=== PATIENT | male | born 1950 | race Caucasian/White ===

== ENCOUNTER 2018-02-15 12:14 | Day surgery (SDC) | payer OTHER ==
[~2018-02-15] VITALS: Ht 172.7 cm; Wt 92.8 kg
[~2018-02-15 12:14] MED LIST: ALBU90OI61; CHOL10002; Desyrel50 MG; FURO20; LEVSOD100; LISI5; METO50; PANT20; TAMS.4ER; XARELTO20 MG
== END 2018-02-15 14:25 | disposition home or self-care (01) ==
LOC: ORSCSDS 12:14
PROVIDERS: Internal Medicine Gastroenterology
PROC: 0DBM8ZX Excision of Descending Colon, Via Natural or Artificial Opening Endoscopic, Diagnostic (ICD-10-PCS; principal; 2018-02-15 13:45)
PROC: 0DB68ZX Excision of Stomach, Via Natural or Artificial Opening Endoscopic, Diagnostic (ICD-10-PCS; principal; 2018-02-15 13:45)
DX: R19.5 Other fecal abnormalities (principal); K29.50 Unspecified chronic gastritis without bleeding; D12.4 Benign neoplasm of descending colon; K64.8 Other hemorrhoids; K57.30 Diverticulosis of large intestine without perforation or abscess without bleeding; D64.9 Anemia, unspecified; I48.2 Chronic atrial fibrillation; G47.33 Obstructive sleep apnea (adult) (pediatric); J45.909 Unspecified asthma, uncomplicated; Z87.891 Personal history of nicotine dependence; I10 Essential (primary) hypertension; E78.5 Hyperlipidemia, unspecified; E03.9 Hypothyroidism, unspecified; Z79.01 Long term (current) use of anticoagulants; Z79.899 Other long term (current) drug therapy
CPT/HCPCS: 88305; 88342; J7120

== ENCOUNTER 2021-05-25 08:42 | Emergency (ER) | payer OTHER ==
[~2021-05-25] VITALS: Ht 172.7 cm; Wt 99.8 kg
[2021-05-25 09:41] LABS: BASOPHILS ABSOLUTE AUTO 0.04 K/mm3 (0.00-0.23); BASOPHILS PERCENT AUTO 1 % (0-2); EOSINOPHILS ABSOLUTE AUTO 0.02 K/mm3 (0.00-0.68); EOSINOPHILS PERCENT AUTO 0 % (0-6); Hematocrit 31.8 % (37.0-53.0); Hemoglobin 10.8 g/dL (13.5-17.5); IMMATURE GRAN ABSOLUTE AUTO 0.05 K/mm3 (0.00-0.10); IMMATURE GRAN PERCENT AUTO 1 % (0-1); LYMPHOCYTES ABSOLUTE AUTO 1.64 K/mm3 (0.84-5.20); LYMPHOCYTES PERCENT AUTO 20 % (21-46); MONOCYTES ABSOLUTE AUTO 1.28 K/mm3 (0.16-1.47); MONOCYTES PERCENT AUTO 15 % (4-13); Mean Corpuscular Volume 94 fL (80-100); Mean Platelet Volume 11.3 fL (9.1-12.4); NEUTROPHILS ABSOLUTE AUTO 5.33 K/mm3 (1.96-9.15); NEUTROPHILS PERCENT AUTO 64 % (41-73); Platelet Count 212 K/mm3 (150-400); RDW Coefficient Variation 15.9 % (11.7-14.2); RDW Standard Deviation 53.9 fL (35.1-46.3); Red Blood Cell Count 3.38 M/mm3 (4.30-5.90); White Blood Cell Count 8.36 K/mm3 (4.00-11.30)
[2021-05-25 09:58] LABS: Alanine Aminotransfer (ALT/SGP 45 U/L (12-78); Albumin, Blood 2.6 g/dL (3.4-5.0); Albumin/Globulin Ratio 0.7 (0.8-1.8); Alk Phos 198 U/L (50-136); Anion Gap 5 mmol/L (6-16); Aspartate Aminotrans (AST/SGOT 72 U/L (12-37); Bilirubin, Total 1.1 mg/dL (0.1-1.0); Blood Urea Nitrogen 14 mg/dL (8-24); Bun/Creatinine Ratio 12.4 (12.0-20.0); CO2, Blood 29 mmol/L (21-32); Calcium, Blood 8.4 mg/dL (8.5-10.1); Chloride, Blood 99 mmol/L (98-108); Creatinine, Blood 1.13 mg/dL (0.60-1.20); Globulin, Blood 3.8 g/dL (2.2-4.0); Glomerular Filtration Rate >60 (60-); Glucose, Blood 117 mg/dL (70-99); Potassium, Blood 4.7 mmol/L (3.5-5.5); Sodium, Blood 133 mmol/L (136-145); Total Protein, Blood 6.4 g/dL (6.4-8.2); Troponin I <0.015 ng/mL (0.000-0.040)
[2021-05-25] MEDS ORDERED: ERGO400 PO (12:13)
[2021-05-25] MEDS ORDERED: Toprol Xl25 MG PO (12:53)
[2021-05-25] MEDS ORDERED: Pepcid20 MG PO (12:53)
== END 2021-05-25 20:46 | disposition home or self-care (01) ==
LOC: ER 08:42
PROVIDERS: Emergency Medicine
DX: I48.91 Unspecified atrial fibrillation (principal); E03.9 Hypothyroidism, unspecified; I10 Essential (primary) hypertension; G47.30 Sleep apnea, unspecified; Z79.01 Long term (current) use of anticoagulants; Z87.891 Personal history of nicotine dependence; Z88.8 Allergy status to other drugs, medicaments and biological substances; Z79.52 Long term (current) use of systemic steroids
CPT/HCPCS: 71045; 80053; 84484; 85025; 93005; 93010; 96374; 99285-25; A9270

== ENCOUNTER 2021-05-25 18:31 | Emergency (ER) | payer OTHER ==
[~2021-05-25] VITALS: Ht 172.7 cm; Wt 99.8 kg
[~2021-05-25 18:31] MED LIST changes: +ERGO400 PO; +Pepcid20 MG PO; +Toprol Xl25 MG PO
[2021-05-25 20:04] LABS: BASOPHILS ABSOLUTE AUTO 0.05 K/mm3 (0.00-0.23); BASOPHILS PERCENT AUTO 1 % (0-2); EOSINOPHILS ABSOLUTE AUTO 0.03 K/mm3 (0.00-0.68); EOSINOPHILS PERCENT AUTO 0 % (0-6); Hematocrit 31.7 % (37.0-53.0); Hemoglobin 10.8 g/dL (13.5-17.5); IMMATURE GRAN ABSOLUTE AUTO 0.05 K/mm3 (0.00-0.10); IMMATURE GRAN PERCENT AUTO 1 % (0-1); LYMPHOCYTES ABSOLUTE AUTO 1.95 K/mm3 (0.84-5.20); LYMPHOCYTES PERCENT AUTO 22 % (21-46); MONOCYTES ABSOLUTE AUTO 1.39 K/mm3 (0.16-1.47); MONOCYTES PERCENT AUTO 15 % (4-13); Mean Corpuscular HGB 31.6 pg (26.0-34.0); Mean Corpuscular HGB Conc 34.1 g/dL (31.5-36.5); Mean Corpuscular Volume 93 fL (80-100); Mean Platelet Volume 11.2 fL (9.1-12.4); NEUTROPHILS ABSOLUTE AUTO 5.58 K/mm3 (1.96-9.15); NEUTROPHILS PERCENT AUTO 62 % (41-73); Platelet Count 203 K/mm3 (150-400); RDW Coefficient Variation 15.9 % (11.7-14.2); RDW Standard Deviation 53.5 fL (35.1-46.3); Red Blood Cell Count 3.42 M/mm3 (4.30-5.90); White Blood Cell Count 9.05 K/mm3 (4.00-11.30)
[2021-05-25 20:21] LABS: Alanine Aminotransfer (ALT/SGP 43 U/L (12-78); Albumin, Blood 2.5 g/dL (3.4-5.0); Albumin/Globulin Ratio 0.7 (0.8-1.8); Alk Phos 190 U/L (50-136); Anion Gap 9 mmol/L (6-16); Aspartate Aminotrans (AST/SGOT 62 U/L (12-37); Bilirubin, Total 0.7 mg/dL (0.1-1.0); Blood Urea Nitrogen 18 mg/dL (8-24); Bun/Creatinine Ratio 12.4 (12.0-20.0); CO2, Blood 23 mmol/L (21-32); Calcium, Blood 8.2 mg/dL (8.5-10.1); Chloride, Blood 102 mmol/L (98-108); Creatinine, Blood 1.45 mg/dL (0.60-1.20); Globulin, Blood 3.8 g/dL (2.2-4.0); Glomerular Filtration Rate 48 (60-); Glucose, Blood 163 mg/dL (70-99); Magnesium, Blood 1.3 mg/dL (1.6-2.4); Potassium, Blood 4.4 mmol/L (3.5-5.5); Sodium, Blood 134 mmol/L (136-145); Total Protein, Blood 6.3 g/dL (6.4-8.2); Troponin I <0.015 ng/mL (0.000-0.040)
== END 2021-05-25 21:38 | disposition home or self-care (01) ==
LOC: ER 18:31
PROVIDERS: Student in an Organized Health Care Education/Training Program
DX: I48.91 Unspecified atrial fibrillation (principal); K21.9 Gastro-esophageal reflux disease without esophagitis; E03.9 Hypothyroidism, unspecified; I10 Essential (primary) hypertension; Z87.891 Personal history of nicotine dependence; Z79.890 Hormone replacement therapy; Z79.899 Other long term (current) drug therapy; Z88.8 Allergy status to other drugs, medicaments and biological substances
CPT/HCPCS: 80053; 83735; 84484; 85025; 93005; 93010; 99285-25; J7120

== ENCOUNTER 2021-11-08 22:39 | Inpatient (IN) | payer OTHER ==
[~2021-11-08] VITALS: Ht 172.7 cm; Wt 104.6 kg
[2021-11-08 23:02] LABS: BASOPHILS ABSOLUTE AUTO 0.07 K/mm3 (0.00-0.23); BASOPHILS PERCENT AUTO 1 % (0-2); EOSINOPHILS ABSOLUTE AUTO 0.05 K/mm3 (0.00-0.68); EOSINOPHILS PERCENT AUTO 1 % (0-6); Hemoglobin 10.9 g/dL (13.5-17.5); IMMATURE GRAN ABSOLUTE AUTO 0.05 K/mm3 (0.00-0.10); IMMATURE GRAN PERCENT AUTO 1 % (0-1); LYMPHOCYTES ABSOLUTE AUTO 1.49 K/mm3 (0.84-5.20); LYMPHOCYTES PERCENT AUTO 14 % (21-46); MONOCYTES PERCENT AUTO 12 % (4-13); Mean Corpuscular HGB 32.5 pg (26.0-34.0); Mean Corpuscular HGB Conc 34.1 g/dL (31.5-36.5); Mean Corpuscular Volume 96 fL (80-100); Mean Platelet Volume 10.4 fL (9.1-12.4); NEUTROPHILS ABSOLUTE AUTO 7.61 K/mm3 (1.96-9.15); NEUTROPHILS PERCENT AUTO 72 % (41-73); Platelet Count 253 K/mm3 (150-400); RDW Coefficient Variation 13.6 % (11.7-14.2); RDW Standard Deviation 47.9 fL (35.1-46.3); Red Blood Cell Count 3.35 M/mm3 (4.30-5.90); White Blood Cell Count 10.57 K/mm3 (4.00-11.30)
[2021-11-08 23:23] LABS: Alanine Aminotransfer (ALT/SGP 30 U/L (12-78); Albumin, Blood 3.3 g/dL (3.4-5.0); Albumin/Globulin Ratio 0.8 (0.8-1.8); Alk Phos 146 U/L (50-136); Anion Gap 7 mmol/L (6-16); Aspartate Aminotrans (AST/SGOT 40 U/L (12-37); Bilirubin, Total 0.7 mg/dL (0.1-1.0); Blood Urea Nitrogen 30 mg/dL (8-24); Bun/Creatinine Ratio 18.9 (12.0-20.0); CO2, Blood 24 mmol/L (21-32); Calcium, Blood 8.5 mg/dL (8.5-10.1); Chloride, Blood 101 mmol/L (98-108); Creatinine, Blood 1.59 mg/dL (0.60-1.20); Globulin, Blood 4.2 g/dL (2.2-4.0); Glomerular Filtration Rate 43 (60-); Glucose, Blood 131 mg/dL (70-99); Potassium, Blood 5.9 mmol/L (3.5-5.5); Sodium, Blood 132 mmol/L (136-145); Total Protein, Blood 7.5 g/dL (6.4-8.2); Troponin I <0.015 ng/mL (0.000-0.040)
[2021-11-09 00:31] LABS: Influenza A, PCR NEGATIVE (NEGATIVE); Influenza B, PCR NEGATIVE (NEGATIVE); Resp Syncytial Virus, PCR NEGATIVE (NEGATIVE); SARS-Cov-2 (COVID-19) PCR, MMC NEGATIVE (NEGATIVE)
[2021-11-09] MEDS ORDERED: POTCHL20ER PO (00:47)
[2021-11-09] MEDS ORDERED: ATOR20 PO (00:48)
[2021-11-09] MEDS ORDERED: ELIQUIS5 M2 PO (00:50)
[2021-11-09 01:43] LABS: Magnesium, Blood 1.5 mg/dL (1.6-2.4)
[2021-11-09 05:14] LABS: BASOPHILS ABSOLUTE AUTO 0.05 K/mm3 (0.00-0.23); BASOPHILS PERCENT AUTO 0 % (0-2); EOSINOPHILS PERCENT AUTO 0 % (0-6); Hematocrit 34.8 % (37.0-53.0); Hemoglobin 11.2 g/dL (13.5-17.5); IMMATURE GRAN ABSOLUTE AUTO 0.04 K/mm3 (0.00-0.10); IMMATURE GRAN PERCENT AUTO 0 % (0-1); LYMPHOCYTES PERCENT AUTO 7 % (21-46); MONOCYTES ABSOLUTE AUTO 1.07 K/mm3 (0.16-1.47); MONOCYTES PERCENT AUTO 10 % (4-13); Mean Corpuscular HGB 32.7 pg (26.0-34.0); Mean Corpuscular HGB Conc 32.2 g/dL (31.5-36.5); Mean Platelet Volume 10.4 fL (9.1-12.4); NEUTROPHILS ABSOLUTE AUTO 9.27 K/mm3 (1.96-9.15); NEUTROPHILS PERCENT AUTO 83 % (41-73); Platelet Count 226 K/mm3 (150-400); RDW Coefficient Variation 13.8 % (11.7-14.2); RDW Standard Deviation 50.9 fL (35.1-46.3); Red Blood Cell Count 3.42 M/mm3 (4.30-5.90); White Blood Cell Count 11.23 K/mm3 (4.00-11.30)
[2021-11-09 05:16] LABS: Mean Corpuscular Volume 102 fL (80-100)
--- NOTE | 2021-11-09 05:33 | NUR ---
SHIFT SUMMARY ASSUMED CARE OF PT AT 0245. PT ALERT AND ORIENTED X4. ON 2L NC MAINTIANING SATS OVER 97%. ON CPAP WHILE ASLEEP. HR AFIB 80'S AND 90'S. NO C/O PAIN OR DISCOMFORT. PT VOIDING INDEPENDENTLY. DESATS INTO LOW 90'S AND SOB WITH EXERTION. PT IN BED SLEEPING WITH CALL ALARM AT SIDE. WILL CONTINUE TO MONITOR UNTIL REPORT GIVEN TO DAYSHIFT RN.
[2021-11-09 05:45] LABS: Anion Gap 10 mmol/L (6-16); Blood Urea Nitrogen 30 mg/dL (8-24); Bun/Creatinine Ratio 19.4 (12.0-20.0); CO2, Blood 22 mmol/L (21-32); Calcium, Blood 9.1 mg/dL (8.5-10.1); Chloride, Blood 100 mmol/L (98-108); Creatinine, Blood 1.55 mg/dL (0.60-1.20); Glomerular Filtration Rate 44 (60-); Glucose, Blood 162 mg/dL (70-99); Potassium, Blood 4.8 mmol/L (3.5-5.5); Sodium, Blood 132 mmol/L (136-145); Troponin I <0.015 ng/mL (0.000-0.040)
--- NOTE | 2021-11-09 17:30 | NUR ---
SHIFT SUMMARY PT HAS BEEN RESTING IN BED. PT HAS DENIED C/O PAIN. PT HAS REPOSITIONED SELF FREQUENTLY FOR COMFORT. PT'S HEARING AID BATTERIES THIS AM, SPOUSE BROUGHT IN A RESIDENTIAL PROGRAM MANAGER FOR THE DEVICES. PT HAD AN OCCAISONAL COUGH WITH SCANT PRODUCTION. VSS, NO CHANGES TO CURRENT CONDITION.
[2021-11-10 04:16] LABS: Hematocrit 32.1 % (37.0-53.0); Hemoglobin 10.7 g/dL (13.5-17.5); Mean Corpuscular HGB 32.5 pg (26.0-34.0); Mean Corpuscular HGB Conc 33.3 g/dL (31.5-36.5); Mean Corpuscular Volume 98 fL (80-100); Mean Platelet Volume 10.6 fL (9.1-12.4); Platelet Count 226 K/mm3 (150-400); RDW Coefficient Variation 13.9 % (11.7-14.2); RDW Standard Deviation 48.9 fL (35.1-46.3); Red Blood Cell Count 3.29 M/mm3 (4.30-5.90); White Blood Cell Count 8.68 K/mm3 (4.00-11.30)
[2021-11-10 04:50] LABS: Albumin, Blood 3.2 g/dL (3.4-5.0); Anion Gap 9 mmol/L (6-16); Blood Urea Nitrogen 31 mg/dL (8-24); Bun/Creatinine Ratio 21.2 (12.0-20.0); CO2, Blood 28 mmol/L (21-32); Calcium, Blood 9.1 mg/dL (8.5-10.1); Chloride, Blood 99 mmol/L (98-108); Creatinine, Blood 1.46 mg/dL (0.60-1.20); Glomerular Filtration Rate 48 (60-); Glucose, Blood 117 mg/dL (70-99); Phosphorus, Blood 3.2 mg/dL (2.5-4.9); Potassium, Blood 4.3 mmol/L (3.5-5.5); Sodium, Blood 136 mmol/L (136-145)
--- NOTE | 2021-11-10 05:49 | NUR ---
SHIFT SUMMARY ASSUMED CARE OF PT AT 1900. PT IS A/OX4. HEART SOUNDS REGULAR, LUNG SOUNDS VERY DIMINISHED BUT PT HAS AUDIBLE WHEEZES WHEN OFF CPAP. RT ORDERED BREATHING TREATMENTS FOR PT . PT GETS VERY DYSPNIC WITH ACTIVITY, LIKE PULLING HIMSELF UP IN BED BUT DOES NOT DESATURATE. PT WEARS 2L NC WHEN NOT ON CPAP. PT USED URINAL T/O THE NIGHT. PT SLEPT MOST OF THE NIGHT. CALL LIGHT IN REACH, BED IN LOWEST POSITION.
--- NOTE | 2021-11-10 17:56 | NUR ---
SHIFT SUMMARY PT HAS BEEN RESTING IN BED. PT DECLINED TO GET UP TO BEDSIDE CHAIR FOR MEALS. PT HAS DENIED C/O PAIN OR DISCOMFORT AND REPOSITIONS SELF FREQUENTLY IN BED. PT HAS HAD EPISODES OF INCREASED WORK OF BREATHING, SPO2 HAS REMAINED >95%, THOUGH RESPIRATIONS WERE LABORED. PT WAS PLACED ON BIPAP AT APPROXIMATELY 1745 TO REDUCE WORK OF BREATHING. PT TOLERATED WELL. VSS, NO OTHER CHANGES TO CURRENT CONDITION.
--- NOTE | 2021-11-11 06:19 | NUR ---
SHIFT SUMMARY ASSUMED CARE OF PT AT 1900. PT IS A/OX4. HEART SOUNDS IRREGULAR, TELE SHOWS AFIB. LUNG SOUNDS ARE DIMINISHED AT THE BASES. PT WORE BIPAP T/O THE NIGHT. PT STATES THAT HE FEELS WORSE TODAY BECUASE HE MISSED A BREATHING TEREATMENT. PT WAS GIVEN TYLENOL DUE TO NOT BEING ABLE TO GET COMFORTABLE AND WAS ABLE TO GET A COUPLE HOURS OF SOLID SLEEP. CALL LIGHT IN REACH, BED IN LOWEST POSITION.
[2021-11-11 08:53] LABS: Mean Corpuscular HGB 32.6 pg (26.0-34.0); Mean Corpuscular HGB Conc 33.3 g/dL (31.5-36.5); Mean Corpuscular Volume 98 fL (80-100); Mean Platelet Volume 10.2 fL (9.1-12.4); Platelet Count 209 K/mm3 (150-400); RDW Coefficient Variation 14.1 % (11.7-14.2); RDW Standard Deviation 50.4 fL (35.1-46.3); Red Blood Cell Count 3.37 M/mm3 (4.30-5.90); White Blood Cell Count 10.56 K/mm3 (4.00-11.30)
[2021-11-11 09:31] LABS: Anion Gap 7 mmol/L (6-16); Blood Urea Nitrogen 33 mg/dL (8-24); Bun/Creatinine Ratio 22.1 (12.0-20.0); CO2, Blood 28 mmol/L (21-32); Calcium, Blood 9.4 mg/dL (8.5-10.1); Chloride, Blood 100 mmol/L (98-108); Creatinine, Blood 1.49 mg/dL (0.60-1.20); Glomerular Filtration Rate 47 (60-); Glucose, Blood 116 mg/dL (70-99); Phosphorus, Blood 4.1 mg/dL (2.5-4.9); Potassium, Blood 4.4 mmol/L (3.5-5.5); Sodium, Blood 135 mmol/L (136-145)
--- NOTE | 2021-11-11 17:39 | NUR ---
SHIFT SUMMARY ASSUMED CARE AT 0700, A/A/OX4. UP TO COMMODE DURING SHIFT WITH ASSISTANCE. 3L 02 VIA KS. VSS, MEDS PER EMAR. L/S DIM T/O. REPOSITIONS SELF IN BED NEEDED, NO ACUTE MEDICAL CHANGES DURING SHIFT. WILL CONTINUE TO MONITOR AND TREAT UNTIL CHANGE OF SHIFT.
[2021-11-12 06:44] LABS: Anion Gap 10 mmol/L (6-16); Blood Urea Nitrogen 34 mg/dL (8-24); Bun/Creatinine Ratio 21.5 (12.0-20.0); CO2, Blood 29 mmol/L (21-32); Calcium, Blood 9.2 mg/dL (8.5-10.1); Chloride, Blood 96 mmol/L (98-108); Creatinine, Blood 1.58 mg/dL (0.60-1.20); Glomerular Filtration Rate 43 (60-); Glucose, Blood 106 mg/dL (70-99); Phosphorus, Blood 5.1 mg/dL (2.5-4.9); Potassium, Blood 4.4 mmol/L (3.5-5.5); Sodium, Blood 135 mmol/L (136-145)
--- NOTE | 2021-11-12 06:57 | NUR ---
SUMMARY NO NEW ISSUES NOTED. PT [id number] TO SURG FLOOR W/OUT INCIDENT. PT HAS SLEPT T/OT REMAINDER OF SHIFT W/ OUT DISTRESS. PT CURRENTLY AWAKE AND IN GOOD SPIRITS. CALL JULIA IN REACH.
--- NOTE | 2021-11-12 17:46 | NUR ---
SHIFT SUMMARY PT A&OX4, VSS/BIOX ON, OXYGEN LEVELS > 92% ON RA. DEEP BREATHING/FLUTTER/I.S. EDU/ENC/DEMONSTRATED T/O SHIFT. WORKED WITH PHYSICAL THERAPY AND OT, WALKED HALLWAYS/TO BRP, UP TO CHAIR IN AFTERNOON; MARGOTH LUQUE. GRACIE PO. VOIDING WELL. WILL REPORT TO ONCOMING HA RN.
--- NOTE | 2021-11-13 03:43 | NUR ---
SHIFT SUMMARY A/OX4. VSS. NO REPORTS OF PAIN THIS SHIFT. SBA TO BATHROOM. TELE REPORTS AFIB IN THE 90S. PLAN FOR PT TO GO HOME TODAY. WILL CONTINUE TO MONITOR AND REPORT TO ONCOMING RN.
[2021-11-13 04:09] LABS: Hematocrit 31.1 % (37.0-53.0); Hemoglobin 10.3 g/dL (13.5-17.5); Mean Corpuscular HGB 32.3 pg (26.0-34.0); Mean Corpuscular HGB Conc 33.1 g/dL (31.5-36.5); Mean Corpuscular Volume 98 fL (80-100); Mean Platelet Volume 10.6 fL (9.1-12.4); Platelet Count 214 K/mm3 (150-400); RDW Standard Deviation 49.6 fL (35.1-46.3); Red Blood Cell Count 3.19 M/mm3 (4.30-5.90)
[2021-11-13 04:34] LABS: Albumin, Blood 2.7 g/dL (3.4-5.0); Anion Gap 9 mmol/L (6-16); Blood Urea Nitrogen 45 mg/dL (8-24); Bun/Creatinine Ratio 23.3 (12.0-20.0); CO2, Blood 27 mmol/L (21-32); Calcium, Blood 8.9 mg/dL (8.5-10.1); Chloride, Blood 97 mmol/L (98-108); Creatinine, Blood 1.93 mg/dL (0.60-1.20); Glomerular Filtration Rate 35 (60-); Glucose, Blood 107 mg/dL (70-99); Phosphorus, Blood 4.6 mg/dL (2.5-4.9); Potassium, Blood 4.3 mmol/L (3.5-5.5); Sodium, Blood 133 mmol/L (136-145)
[2021-11-13] MEDS ORDERED: EUTHYROX125 MCG PO (10:25)
[2021-11-13] MEDS ORDERED: TAMS.4ER PO (10:27)
[2021-11-13] MEDS ORDERED: METO25ER PO (10:27)
[2021-11-13] MEDS ORDERED: [UNRECOGNIZED DRUG - CODE] PO (10:28)
[2021-11-13] MEDS ORDERED: PROBIOTIC1 EA13 PO (10:29)
[2021-11-13] MEDS ORDERED: CEFU500T30 PO (10:30)
--- NOTE | 2021-11-13 11:41 | NUR ---
DISCHARGE SUMMARY PT A&OX4, VSS, VOIDING WELL, GRACIE PO, AMBULATING INDEPENDENTLY IN ROOM/TO BRP/HALLWAY. DC INSTRUCTIONS PROVIDED. PT REP UNDERSTANDING THOSE INSTRUCTIONS INCLUDING CARDIAC DIET, NEW MEDS AT [facility], [facility]. LEFT FLOOR VIA WC TO GO HOME WITH , WITH ALL PERSONAL POSSESSIONS.
== END 2021-11-13 11:10 | disposition home or self-care (01) | DRG 871 ==
LOC: ER 22:39 → PCU 11-09 02:44 → SURS 11-11 20:52
PROVIDERS: Internal Medicine; Student in an Organized Health Care Education/Training Program; ADMIT Family Medicine
PROC: 5A09357 Assistance with Respiratory Ventilation, Less than 24 Consecutive Hours, Continuous Positive Airway Pressure (ICD-10-PCS; principal; 2021-11-09)
DX: A41.9 Sepsis, unspecified organism (principal); J18.9 Pneumonia, unspecified organism; I50.31 Acute diastolic (congestive) heart failure; J96.01 Acute respiratory failure with hypoxia; I50.33 Acute on chronic diastolic (congestive) heart failure; N17.9 Acute kidney failure, unspecified; E87.1 Hypo-osmolality and hyponatremia; I13.0 Hypertensive heart and chronic kidney disease with heart failure and stage 1 through stage 4 chronic kidney disease, or unspecified chronic kidney disease; I48.20 Chronic atrial fibrillation, unspecified; R65.20 Severe sepsis without septic shock; Z20.822 Contact with and (suspected) exposure to COVID-19; F43.10 Post-traumatic stress disorder, unspecified; E03.9 Hypothyroidism, unspecified; N18.30 Chronic kidney disease, stage 3 unspecified; K21.9 Gastro-esophageal reflux disease without esophagitis; E87.5 Hyperkalemia; E83.42 Hypomagnesemia; D63.1 Anemia in chronic kidney disease; E78.5 Hyperlipidemia, unspecified; N40.0 Benign prostatic hyperplasia without lower urinary tract symptoms; G47.33 Obstructive sleep apnea (adult) (pediatric); G24.01 Drug induced subacute dyskinesia; E66.9 Obesity, unspecified; Z68.35 Body mass index [BMI] 35.0-35.9, adult; Z88.8 Allergy status to other drugs, medicaments and biological substances; Z90.49 Acquired absence of other specified parts of digestive tract; Z98.890 Other specified postprocedural states; Z87.891 Personal history of nicotine dependence; Z99.89 Dependence on other enabling machines and devices; Z79.01 Long term (current) use of anticoagulants; Z79.899 Other long term (current) drug therapy
CPT/HCPCS: 0241U; 36415; 71045; 80048; 80053; 80069; 83605; 83735; 83880; 84145; 84443; 84484; 85025; 85027; 87040; 93005; 93010; 94640; 94644; 94660; 94762; 96365; 96375; 97110; 97161; 97165; 97530; 97535; 99285-25; A9270; J0456; J0610; J0696; J1940; J3475; J7050

== ENCOUNTER 2022-12-19 20:00 | Inpatient (IN) | payer OTHER ==
[~2022-12-19] VITALS: Ht 172.7 cm; Wt 110.4 kg
[~2022-12-19 20:00] MED LIST changes: +ATOR20 PO; +CEFU500T30 PO; -Desyrel50 MG; +ELIQUIS5 M2 PO; +EUTHYROX125 MCG PO; +METO25ER PO; +POTCHL20ER PO; +PROBIOTIC1 EA13 PO; +TAMS.4ER PO; +TRAZ150T57 PO; +[UNRECOGNIZED DRUG - CODE] PO
[2022-12-19 20:16] LABS: BASOPHILS ABSOLUTE AUTO 0.02 K/mm3 (0.00-0.23); BASOPHILS PERCENT AUTO 0 % (0-2); EOSINOPHILS ABSOLUTE AUTO 0.12 K/mm3 (0.00-0.68); EOSINOPHILS PERCENT AUTO 2 % (0-6); Hematocrit 34.5 % (37.0-53.0); IMMATURE GRAN ABSOLUTE AUTO 0.05 K/mm3 (0.00-0.10); IMMATURE GRAN PERCENT AUTO 1 % (0-1); LYMPHOCYTES ABSOLUTE AUTO 0.98 K/mm3 (0.84-5.20); LYMPHOCYTES PERCENT AUTO 17 % (21-46); MONOCYTES ABSOLUTE AUTO 1.03 K/mm3 (0.16-1.47); MONOCYTES PERCENT AUTO 17 % (4-13); Mean Corpuscular HGB 32.8 pg (26.0-34.0); Mean Corpuscular HGB Conc 34.8 g/dL (31.5-36.5); Mean Corpuscular Volume 94 fL (80-100); Mean Platelet Volume 9.7 fL (9.1-12.4); NEUTROPHILS ABSOLUTE AUTO 3.73 K/mm3 (1.96-9.15); NEUTROPHILS PERCENT AUTO 63 % (41-73); Platelet Count 211 K/mm3 (150-400); RDW Coefficient Variation 12.1 % (11.7-14.2); RDW Standard Deviation 42.4 fL (35.1-46.3); Red Blood Cell Count 3.66 M/mm3 (4.30-5.90); White Blood Cell Count 5.93 K/mm3 (4.00-11.30)
[2022-12-19 20:36] LABS: Albumin, Blood 3.3 g/dL (3.4-5.0); Albumin/Globulin Ratio 0.8 (0.8-1.8); Bilirubin, Total 0.4 mg/dL (0.1-1.0); Bun/Creatinine Ratio 27.5 (12.0-20.0); Calcium, Blood 8.2 mg/dL (8.5-10.1); Creatinine, Blood 1.09 mg/dL (0.60-1.20); Potassium, Blood 4.2 mmol/L (3.5-5.5); Total Protein, Blood 7.3 g/dL (6.4-8.2)
[2022-12-19 20:54] LABS: Influenza A, PCR NEGATIVE (NEGATIVE); Influenza B, PCR NEGATIVE (NEGATIVE); Resp Syncytial Virus, PCR NEGATIVE (NEGATIVE)
[2022-12-19 21:21] LABS: SARS-Cov-2 (COVID-19) PCR, MMC POSITIVE (NEGATIVE)
[2022-12-19 21:44] LABS: PCO2 Venous 48.1 mmHg (38-42); pH Blood Venous 7.34 (7.34-7.37)
[2022-12-19 21:45] LABS: Base Excess Venous 0 mmol/L; Bicarbonate Venous 23.5 mmol/L (24.0-30.0)
[2022-12-20 04:13] LABS: BASOPHILS ABSOLUTE AUTO 0.01 K/mm3 (0.00-0.23); BASOPHILS PERCENT AUTO 0 % (0-2); EOSINOPHILS PERCENT AUTO 0 % (0-6); Hematocrit 34.3 % (37.0-53.0); Hemoglobin 12.2 g/dL (13.5-17.5); IMMATURE GRAN ABSOLUTE AUTO 0.03 K/mm3 (0.00-0.10); IMMATURE GRAN PERCENT AUTO 1 % (0-1); LYMPHOCYTES ABSOLUTE AUTO 0.44 K/mm3 (0.84-5.20); LYMPHOCYTES PERCENT AUTO 8 % (21-46); MONOCYTES ABSOLUTE AUTO 0.19 K/mm3 (0.16-1.47); MONOCYTES PERCENT AUTO 4 % (4-13); Mean Corpuscular HGB 32.3 pg (26.0-34.0); Mean Corpuscular HGB Conc 35.6 g/dL (31.5-36.5); Mean Corpuscular Volume 91 fL (80-100); Mean Platelet Volume 9.9 fL (9.1-12.4); NEUTROPHILS ABSOLUTE AUTO 4.54 K/mm3 (1.96-9.15); NEUTROPHILS PERCENT AUTO 87 % (41-73); Platelet Count 208 K/mm3 (150-400); RDW Standard Deviation 40.2 fL (35.1-46.3); Red Blood Cell Count 3.78 M/mm3 (4.30-5.90); White Blood Cell Count 5.21 K/mm3 (4.00-11.30)
[2022-12-20 04:40] LABS: Albumin, Blood 3.3 g/dL (3.4-5.0); Albumin/Globulin Ratio 0.8 (0.8-1.8); Bilirubin, Total 0.5 mg/dL (0.1-1.0); Bun/Creatinine Ratio 25.6 (12.0-20.0); Calcium, Blood 8.6 mg/dL (8.5-10.1); Creatinine, Blood 1.17 mg/dL (0.60-1.20); Potassium, Blood 4.5 mmol/L (3.5-5.5); Total Protein, Blood 7.3 g/dL (6.4-8.2)
[2022-12-20] MEDS ORDERED: TORSE20 PO (11:39)
[2022-12-20 12:43] LABS: CPK Creatine Kinase 197 U/L (39-308)
--- NOTE | 2022-12-20 12:58 | NUR ---
PT TOLERATED NC FOR LUNCH PT TOLERATED 5L O2 VIA NC TO EAT A LITTLE LUNCH. PT NOW BACK ON BIPAP. SATS ABOVE 90% T/O LUNCH.
--- NOTE | 2022-12-20 17:41 | NUR ---
SHIFT SUMMARY PT TOLERATING 5L O2 VIA NC DURING MEALS WELL FOR 30-40 MINUTES AT A TIME. MAINTAINING SATS IN THE MID-HIGH 90S. PT REQUESTS BIPAP AFTER EATING FOR FATIGUE FROM HIS WORK OF BREATHING. PT TOLERATED GETTING UP TO THE RECLINER FOR DINNER TONIGHT. MINIMAL ASSIST. TESSLAN PERRLS GIVEN ONCE THIS SHIFT FOR COUGH. HOME MED & HEALTH HISTORY UPDATED AND DR. REYEZ NOTIFIED. PT CURRENTLY RESTING IN BED. CALL LIGHT IN REACH. DENIES OTHER NEEDS AT THIS TIME. HYDRALAZINE GIVEN ONCE THIS SHIFT. BP IMPROVED AFTER THIS AND HOME MEDS GIVEN.
--- NOTE | 2022-12-21 05:37 | NUR ---
SHIFT SUMMARY A/OX4, 1P ASSIST FOR TRANSFERS FROM BED/CHAIR. TELE FLIPS BETWEEN SR/AFIB 70S-90S. DENIES CHEST PAIN/PRESSURE. SPO2 >92% ON BIPAP 15/10 FIO2 25% PT SLEPT T/O THE NIGHT. NO ACUTE CHANGES AT THIS TIME. BED IN LOWEST POSITION WITH CALL LIGHT IN REACH. WILL CONTINUE TO MONITOR AND REPORT TO ONCOMING RN.
[2022-12-21 10:02] LABS: Albumin, Blood 3.1 g/dL (3.4-5.0); Anion Gap 8 mmol/L (6-16); Blood Urea Nitrogen 50 mg/dL (8-24); Bun/Creatinine Ratio 26.3 (12.0-20.0); CO2, Blood 25 mmol/L (21-32); Calcium, Blood 8.9 mg/dL (8.5-10.1); Chloride, Blood 94 mmol/L (98-108); Glomerular Filtration Rate 37 (60-); Glucose, Blood 150 mg/dL (70-99); Phosphorus, Blood 2.3 mg/dL (2.5-4.9); Potassium, Blood 4.8 mmol/L (3.5-5.5); Sodium, Blood 127 mmol/L (136-145)
--- NOTE | 2022-12-21 18:49 | NUR ---
END OF SHIFT NOTE PT A&O X4. VSS. MONITOR SHOWING AFIB, HR 70s-90s. SPO2 > 92% ON BIPAP: 15/10, FIO2 25% MAJORITY OF DAY. PT ONLY TAKING BRIEF BREAKS FROM BIPAP, SWITCHING TO 5L NC W/ SPO2 > 92% BUT PT BECOMING SOB & RR LABORED, REQUIRING TRANSITION BACK TO BIPAP. PT TOLERATING BIPAP WELL. NO C/O PAIN/DISCOMFORT.
[2022-12-22 03:53] LABS: Base Excess Venous 2.1 mmol/L; Bicarbonate Venous 26.1 mmol/L (24.0-30.0); PCO2 Venous 40.4 mmHg (38-42); pH Blood Venous 7.43 (7.34-7.37)
[2022-12-22 04:21] LABS: Anion Gap 6 mmol/L (6-16); Blood Urea Nitrogen 58 mg/dL (8-24); Bun/Creatinine Ratio 31.7 (12.0-20.0); CO2, Blood 26 mmol/L (21-32); Calcium, Blood 9.1 mg/dL (8.5-10.1); Chloride, Blood 96 mmol/L (98-108); Creatinine, Blood 1.83 mg/dL (0.60-1.20); Glomerular Filtration Rate 39 (60-); Glucose, Blood 169 mg/dL (70-99); Phosphorus, Blood 4.1 mg/dL (2.5-4.9); Potassium, Blood 5.6 mmol/L (3.5-5.5); Sodium, Blood 128 mmol/L (136-145)
--- NOTE | 2022-12-22 05:34 | NUR ---
SHIFT SUMMARY A/OX4, 1P ASSIST FOR TRANSFERS FROM BED/CHAIR. TELE AFIB IN THE 70S. DENIES CHEST PAIN/PRESSURE. SPO2 >92% ON BIPAP 15/10 FIO2 25% PT SLEPT T/O THE NIGHT. NO ACUTE CHANGES AT THIS TIME. BED IN LOWEST POSITION WITH CALL LIGHT IN REACH. WILL CONTINUE TO MONITOR AND REPORT TO ONCOMING RN.
[2022-12-22] MEDS ORDERED: B-12 COMPL1000 MCG/2 IM (12:12)
--- NOTE | 2022-12-22 18:51 | NUR ---
END OF SHIFT PT A&O X4. VSS. MONITOR SHOWING AFIB, HR 70s-90s. SPO2 > 92% ON BIPAP, TRANSITIONED TO 5L NC, THEN TITRATED TO RA W/ PT TOLERATING WELL. PT SBA UP TO CHAIR. PT REPORTING FEELING BETTER. NO EVENTS THIS SHIFT.
--- NOTE | 2022-12-23 04:54 | NUR ---
SHIFT SUMMARY PT A&OX4, MOVES IND IN BED, 1P ASSIST W/ THE URINAL, ON RA WHEN AWAKE AND BIPAP DURING THE NIGHT. HE HAS HAD NO COMPLAINTS TONIGHT, HAS BEEN AFIB 80'S-90'S THIS SHIFT, DENIES SOB/ANGINA, AND HE WAS MEDICATED W/ 10MG HYDRALIZINE FOR HTN. PT IS RESTING, CALLS APPROPRIATELY, BED IS IN LOW, AND CALL LIGHT IS IN REACH. WILL CONTINUE TO MONITOR UNTIL SHIFT REPORT IS GIVEN TO THE ONCOMING SHIFT RN. SEE NOTES FOR ANY UPDATES.
[2022-12-23 17:12] LABS: Anion Gap 7 mmol/L (6-16); Blood Urea Nitrogen 66 mg/dL (8-24); Bun/Creatinine Ratio 33.5 (12.0-20.0); CO2, Blood 23 mmol/L (21-32); Chloride, Blood 100 mmol/L (98-108); Creatinine, Blood 1.97 mg/dL (0.60-1.20); Glomerular Filtration Rate 35 (60-); Glucose, Blood 158 mg/dL (70-99); Phosphorus, Blood 4.1 mg/dL (2.5-4.9); Potassium, Blood 5.1 mmol/L (3.5-5.5); Sodium, Blood 130 mmol/L (136-145)
--- NOTE | 2022-12-23 18:06 | NUR ---
END OF SHIFT NOTE PT A&O X4. VSS. MONITOR SHOWING AFIB, HR 70s-90s. SPO2 > 92% ON RA. PT TOLERATING AMBULATION TO CHAIR WELL. PT W/ INCREASED WORK OF BREATHING W/ ACTIVITY, BUT SPO2 MAINTAINS > 92%. PT DENYING PAIN/DISCOMFORT.
[2022-12-24 05:08] LABS: Albumin, Blood 2.8 g/dL (3.4-5.0); Anion Gap 5 mmol/L (6-16); Blood Urea Nitrogen 71 mg/dL (8-24); Bun/Creatinine Ratio 35.1 (12.0-20.0); CO2, Blood 23 mmol/L (21-32); Calcium, Blood 8.8 mg/dL (8.5-10.1); Chloride, Blood 103 mmol/L (98-108); Creatinine, Blood 2.02 mg/dL (0.60-1.20); Glomerular Filtration Rate 34 (60-); Glucose, Blood 154 mg/dL (70-99); Phosphorus, Blood 4.3 mg/dL (2.5-4.9); Potassium, Blood 5.4 mmol/L (3.5-5.5); Sodium, Blood 131 mmol/L (136-145)
--- NOTE | 2022-12-24 06:05 | NUR ---
SHIFT SUMMARY PT IS A&OX4, MOVES IND IN BED, HAS HAD HTN T/O THE SHIFT, BEEN ON BIPAP 08/07 21% WHEN ASLEEP, AND SR 60'S-90'S ON TELE. HE HAS HAD NO COMPLAINTS AND HAS BEEN ASLEEP MOST OF THE SHIFT. BED IS IN LOW, CALL LIGHT IS IN REACH. WILL CONTINUE TO MONITOR UNTIL SHIFT REPORT IS GIVEN TO THE ONCOMING SHIFT RN. SEE NOTES FOR ANY UPDATES.
[2022-12-24] MEDS ORDERED: OLUMIANT2 MG PO (13:11)
[2022-12-24] MEDS ORDERED: VISBIOME 112.51 EACH PO (13:12)
[2022-12-24] MEDS ORDERED: Tessalon200 MG PO (13:12)
[2022-12-24] MEDS ORDERED: ALBU2.5V5 INH (13:15)
[2022-12-24] MEDS ORDERED: CEFD300 PO (13:15)
[2022-12-24] MEDS ORDERED: IPRAT-ALBUT 0.5-3 ML INH (13:17)
[2022-12-24] MEDS ORDERED: Prednisone10 MG PO (13:19)
--- NOTE | 2022-12-24 14:43 | NUR ---
DISCHARGE NOTE PT DISCHARGED HOME WITH IN WHEELCHAIR. DISCHARGE PAPERWORK GONE OVER AND IV REMOVED. PT VERBALIZED UNDERSTANDING OF TEACHING.
== END 2022-12-24 14:24 | disposition home health service (06) | DRG 177 ==
LOC: ER 20:00 → PCU 22:11
PROVIDERS: Internal Medicine; Student in an Organized Health Care Education/Training Program; ADMIT Internal Medicine
PROC: 3E0333Z Introduction of Anti-inflammatory into Peripheral Vein, Percutaneous Approach (ICD-10-PCS; principal; 2022-12-19)
PROC: XW0DXM6 Introduction of Baricitinib into Mouth and Pharynx, External Approach, New Technology Group 6 (ICD-10-PCS; 2022-12-19)
PROC: XW033E5 Introduction of Remdesivir Anti-infective into Peripheral Vein, Percutaneous Approach, New Technology Group 5 (ICD-10-PCS; 2022-12-19)
PROC: 5A09457 Assistance with Respiratory Ventilation, 24-96 Consecutive Hours, Continuous Positive Airway Pressure (ICD-10-PCS; 2022-12-19)
DX: U07.1 COVID-19 (principal); I50.33 Acute on chronic diastolic (congestive) heart failure; J96.01 Acute respiratory failure with hypoxia; J12.82 Pneumonia due to coronavirus disease 2019; E87.1 Hypo-osmolality and hyponatremia; I13.0 Hypertensive heart and chronic kidney disease with heart failure and stage 1 through stage 4 chronic kidney disease, or unspecified chronic kidney disease; I48.20 Chronic atrial fibrillation, unspecified; J44.0 Chronic obstructive pulmonary disease with (acute) lower respiratory infection; J44.1 Chronic obstructive pulmonary disease with (acute) exacerbation; N17.9 Acute kidney failure, unspecified; A08.39 Other viral enteritis; Z28.21 Immunization not carried out because of patient refusal; F43.10 Post-traumatic stress disorder, unspecified; E03.9 Hypothyroidism, unspecified; K21.9 Gastro-esophageal reflux disease without esophagitis; G47.33 Obstructive sleep apnea (adult) (pediatric); E78.5 Hyperlipidemia, unspecified; N40.0 Benign prostatic hyperplasia without lower urinary tract symptoms; E83.39 Other disorders of phosphorus metabolism; N18.30 Chronic kidney disease, stage 3 unspecified; Z99.89 Dependence on other enabling machines and devices; Z90.49 Acquired absence of other specified parts of digestive tract; Z98.49 Cataract extraction status, unspecified eye; Z98.890 Other specified postprocedural states; Z87.891 Personal history of nicotine dependence; Z79.2 Long term (current) use of antibiotics; Z79.01 Long term (current) use of anticoagulants; Z79.51 Long term (current) use of inhaled steroids; Z79.890 Hormone replacement therapy; Z79.899 Other long term (current) drug therapy
CPT/HCPCS: 0241U; 36415; 71045; 80053; 80069; 82550; 82803; 83880; 84145; 84484; 85025; 93005; 93010; 93306; 94640; 94644; 94660; 94664; 94762; 96365; 96375; 97110; 97162; 97166; 97530; 97535; 99285-25; A9270; C9399; J0248; J0360; J0456; J0696; J1100; J1940; J2550; J2920; J2930; J3420; J7050; J7060

== ENCOUNTER 2023-06-22 20:46 | Inpatient (IN) | payer OTHER ==
[~2023-06-22] VITALS: Ht 172.7 cm; Wt 99.5 kg
[~2023-06-22 20:46] MED LIST changes: +ALBU2.5V5 INH; +B-12 COMPL1000 MCG/2 IM; +CEFD300 PO; +IPRAT-ALBUT 0.5-3 ML INH; +OLUMIANT2 MG PO; +Prednisone10 MG PO; +TORSE20 PO; +Tessalon200 MG PO; +VISBIOME 112.51 EACH PO
[2023-06-22 21:03] LABS: Base Excess Venous 2.8 mmol/L; Bicarbonate Venous 26.7 mmol/L (24.0-30.0); PCO2 Venous 40.1 mmHg (38-42); pH Blood Venous 7.44 (7.34-7.37)
[2023-06-22 21:04] LABS: BASOPHILS ABSOLUTE AUTO 0.05 K/mm3 (0.00-0.23); BASOPHILS PERCENT AUTO 0 % (0-2); EOSINOPHILS PERCENT AUTO 1 % (0-6); Hematocrit 30.3 % (37.0-53.0); Hemoglobin 10.2 g/dL (13.5-17.5); IMMATURE GRAN PERCENT AUTO 1 % (0-1); LYMPHOCYTES ABSOLUTE AUTO 3.42 K/mm3 (0.84-5.20); LYMPHOCYTES PERCENT AUTO 24 % (21-46); MONOCYTES PERCENT AUTO 9 % (4-13); Mean Corpuscular HGB 32.4 pg (26.0-34.0); Mean Corpuscular HGB Conc 33.7 g/dL (31.5-36.5); Mean Corpuscular Volume 96 fL (80-100); Mean Platelet Volume 10.1 fL (9.1-12.4); NEUTROPHILS PERCENT AUTO 65 % (41-73); Platelet Count 265 K/mm3 (150-400); RDW Coefficient Variation 13.9 % (11.7-14.2); RDW Standard Deviation 49.4 fL (35.1-46.3); Red Blood Cell Count 3.15 M/mm3 (4.30-5.90); White Blood Cell Count 14.27 K/mm3 (4.00-11.30)
[2023-06-22 21:23] LABS: Albumin, Blood 3.2 g/dL (3.4-5.0); Albumin/Globulin Ratio 0.9 (0.8-1.8); Bilirubin, Total 0.2 mg/dL (0.1-1.0); Bun/Creatinine Ratio 21.7 (12.0-20.0); Calcium, Blood 8.5 mg/dL (8.5-10.1); Creatinine, Blood 2.12 mg/dL (0.60-1.20); Globulin, Blood 3.7 g/dL (2.2-4.0); Potassium, Blood 4.1 mmol/L (3.5-5.5); Total Protein, Blood 6.9 g/dL (6.4-8.2)
--- NOTE | 2023-06-22 23:18 | NUR ---
PT CHART REVEIWED FOR ADMISSION
[2023-06-23] VITALS (8 sets, daily range): BP systolic 115–154; BP diastolic 67–105
--- NOTE | 2023-06-23 01:15 | NUR ---
ADMIT NOTE 72 YR OLD MALE ADMITTED TO FLOOR FROM THE ED WITH DX OF COPD EXACERBATION. ALERT AND ORIENTED. ER REPORTED SOB WITH EXERTION. LUNG SOUNDS DIMINISHED. ANTIBIOITIC ADMINISTERED. PLACED ON CPAP PER RT. HOB ELEVATED. ORIENTED TO USE OF CALL LIGHT. CALL LIGHT IN REACH.CONT PULSE OX ON. SATS 90'S
[2023-06-23 04:50] LABS: BASOPHILS ABSOLUTE AUTO 0.03 K/mm3 (0.00-0.23); BASOPHILS PERCENT AUTO 0 % (0-2); EOSINOPHILS PERCENT AUTO 0 % (0-6); Hematocrit 32.6 % (37.0-53.0); Hemoglobin 10.9 g/dL (13.5-17.5); IMMATURE GRAN ABSOLUTE AUTO 0.07 K/mm3 (0.00-0.10); IMMATURE GRAN PERCENT AUTO 1 % (0-1); LYMPHOCYTES ABSOLUTE AUTO 0.94 K/mm3 (0.84-5.20); LYMPHOCYTES PERCENT AUTO 8 % (21-46); MONOCYTES ABSOLUTE AUTO 0.09 K/mm3 (0.16-1.47); MONOCYTES PERCENT AUTO 1 % (4-13); Mean Corpuscular HGB 31.9 pg (26.0-34.0); Mean Corpuscular HGB Conc 33.4 g/dL (31.5-36.5); Mean Corpuscular Volume 95 fL (80-100); Mean Platelet Volume 10.3 fL (9.1-12.4); NEUTROPHILS ABSOLUTE AUTO 10.72 K/mm3 (1.96-9.15); NEUTROPHILS PERCENT AUTO 90 % (41-73); Platelet Count 269 K/mm3 (150-400); RDW Coefficient Variation 13.9 % (11.7-14.2); RDW Standard Deviation 48.4 fL (35.1-46.3); Red Blood Cell Count 3.42 M/mm3 (4.30-5.90); White Blood Cell Count 11.85 K/mm3 (4.00-11.30)
--- NOTE | 2023-06-23 05:01 | NUR ---
BP 54/102 HR 102. NOTIFIED, ORDERED TO GIVE 0900 AM DOSE OF TOPROL XL 37.5 MG PO NOW. (DR SELBY)
[2023-06-23 05:12] LABS: Albumin, Blood 3.2 g/dL (3.4-5.0); Albumin/Globulin Ratio 0.8 (0.8-1.8); Bilirubin, Total 0.2 mg/dL (0.1-1.0); Bun/Creatinine Ratio 23.3 (12.0-20.0); Creatinine, Blood 1.93 mg/dL (0.60-1.20); Globulin, Blood 4.1 g/dL (2.2-4.0); Potassium, Blood 4.6 mmol/L (3.5-5.5); Total Protein, Blood 7.3 g/dL (6.4-8.2)
--- NOTE | 2023-06-23 05:31 | NUR ---
RFID STRATEGIST SUMMARY ADMITTED EARLIER IN THE SHIFT WITH DX OF COPD EXACERBATION. ED RN REPORTED PT SOB WITH EXERTION. HX A FIB AND HTN. ALERT AND ORIENTED X4. LUNG SOUNDS DIMINISHED. PLACED ON CPAP PER RT. ON CONTINUOUS BIOX. O2 SATS IN THE 90'S. RECEIVING ANTIBIOTICS, AWAKE AT INTERVALS. VS TAKEN EARLIER, BP 154/102 AND HR 102. NOTIFIED AND ORDERS TO GIVE AM TOPROL XL 37.5 MG PO NOW. WILL RE CHECK BP IN 30 MON OR SO. ASYMPTOMATIC. CALL LIGHT IN REACH. WILL CONTINUE TO MONITOR
[2023-06-23 09:07] LABS: Influenza A, PCR NEGATIVE (NEGATIVE); Influenza B, PCR NEGATIVE (NEGATIVE); Resp Syncytial Virus, PCR NEGATIVE (NEGATIVE); SARS-Cov-2 (COVID-19) PCR, MMC NEGATIVE (NEGATIVE)
--- NOTE | 2023-06-23 10:38 | NUR ---
DR. RONDON AT BEDSIDE THIS MORNING WE TESTED THE PT FOR RSV/COVID/FLU (RESULTS NEG), SPUTUM SX ORDERED, ADDED LASIX (DUE TO ELEVATED BNP), STARTED THE PT ON COUGH SYRUP SUPRESSENTS, AND I ASKED DR. RONDON ABOUT HTN MEDICATIONS. SHE STATED SHE WILL LOOK AT HIS MEDICATIONS. BP HAS BEEN ELEVATED SINCE ADMISSION DESPITE GIVEN METOPROLOL EARLY.
--- NOTE | 2023-06-23 16:49 | NUR ---
SHIFT SUMMARY THIS PT WAS A NEW ADMIT LAST NIGHT. HE IS A VERY PLEASANT AND A&OX4. HE WAS VERY SOB THIS MORNING DUE TO A HACKING COUGH. RT WAS IN THE ROOM DURING SHIFT CHANGE AND HE WAS SWITCHING THE PT OFF OF THE CPAP ONTO THE NC. I BROUGHT IN [place], AND OBTAINED AN ORDER FOR CODEINE. HE STILL HAS A COUGH BUT IT IS NOT PERSISTENT. THE PT HAS BEEN ON 2L NC WITH HIS SP02>93%. PT IS ON TELEMETRY AND HAS BEEN RUNNING AFIB 100 S-130 S. HE GETS TACHY WHEN AMBULATING OR COUGHING. PT HAS BEEN HYPERTENSIVE AND DR. DUDLEY WAS MADE AWARE. SHE STATED SHE WOULD LOOK AT HIS MEDICATIONS ON TWO DIFFERENT ENCOUNTERS TODAY. PT DENIES ANGINA BUT DOES FEEL PRESSURE WHEN HE IS COUGHING.
--- NOTE | 2023-06-24 00:06 | NUR ---
NURSE NOTE BP LOWER THAN NOTED LAST NIGHT. AM RN REPORTED PT RECEIVED LASIX AND OTHER MEDS TO ADDRESS BP. AFFECT CHEERFUL. HOB ELEVATED. LUNG SOUNDS DIMINISHED. PLACED ON CPAP PER RT, CONT BIOX - O2 SATS IN THE 90'S. MED TELE A FIB 198. RECEIVED FIRE IGNITION TEACHING EARLIER. REQUESTED AND RECEIVED RAYNA MANSFIELD AT HS, HAS BEEN RESTING MORE QUIETLY WITH FEW NOTED COUGHS. CALL LIGHT IN REACH.
--- NOTE | 2023-06-24 03:14 | NUR ---
EXECUTIVE DIRECTOR SHELTERED WORKSHOP SUMMARY MED TELE SINUS TACH, OTHERWISE VSS. BP WNL. ALERT AND ORIENTED. LUNG SOUNDS REMAIN DIMINISHED IN LOWER LOBES. CPAP IN USE. AFFECT CHEERFUL WHEN SPEAKING WITH STAFF. REQUESTED AND RECEIVED RAYNA VALENTINO AT , HAS BEEN RESTING QUIETLY WITH FEW INTERRUPTINS SINCE. CALL LIGHT IN REACH. WILL CONTINUE TO MONITOR.
[2023-06-24 04:56] VITALS: BP 153/101
[2023-06-24 05:07] LABS: BASOPHILS ABSOLUTE AUTO 0.02 K/mm3 (0.00-0.23); BASOPHILS PERCENT AUTO 0 % (0-2); EOSINOPHILS PERCENT AUTO 0 % (0-6); Hemoglobin 10.7 g/dL (13.5-17.5); IMMATURE GRAN ABSOLUTE AUTO 0.11 K/mm3 (0.00-0.10); IMMATURE GRAN PERCENT AUTO 1 % (0-1); LYMPHOCYTES ABSOLUTE AUTO 0.87 K/mm3 (0.84-5.20); LYMPHOCYTES PERCENT AUTO 6 % (21-46); MONOCYTES ABSOLUTE AUTO 0.57 K/mm3 (0.16-1.47); MONOCYTES PERCENT AUTO 4 % (4-13); Mean Corpuscular HGB 31.8 pg (26.0-34.0); Mean Corpuscular HGB Conc 33.4 g/dL (31.5-36.5); Mean Corpuscular Volume 95 fL (80-100); Mean Platelet Volume 10.6 fL (9.1-12.4); NEUTROPHILS PERCENT AUTO 89 % (41-73); Platelet Count 261 K/mm3 (150-400); RDW Standard Deviation 48.6 fL (35.1-46.3); Red Blood Cell Count 3.37 M/mm3 (4.30-5.90); White Blood Cell Count 14.57 K/mm3 (4.00-11.30)
[2023-06-24 05:37] LABS: Albumin, Blood 3.2 g/dL (3.4-5.0); Anion Gap 6 mmol/L (6-16); Blood Urea Nitrogen 66 mg/dL (8-24); Bun/Creatinine Ratio 36.9 (12.0-20.0); CO2, Blood 28 mmol/L (21-32); Calcium, Blood 9.2 mg/dL (8.5-10.1); Chloride, Blood 100 mmol/L (98-108); Creatinine, Blood 1.79 mg/dL (0.60-1.20); Glomerular Filtration Rate 40 (60-); Glucose, Blood 202 mg/dL (70-99); Potassium, Blood 4.7 mmol/L (3.5-5.5); Sodium, Blood 134 mmol/L (136-145)
[2023-06-24 07:09] VITALS: BP 158/110
[2023-06-24 15:08] VITALS: BP 144/98
--- NOTE | 2023-06-24 16:03 | NUR ---
PT A&OX4 AND PLEASANT. CALLS APPROPRIATLY. AT BEDSIDE DURING MORNING AND HELPED PT WITH URINAL. BP CONTINUES TO BE ELEVATED. PT ON 4L OF OXYGEN. PT HAS EPISODES OF HACKING COUGH. MEDICATED PER EMAR AND RT CALLED WHEN NEEDED. PT STATES HE HAS HAD COUGH FOR SOME TIME AND THAT IT IS HIS "NEW NORMAL". THIS NURSE GOING HOME EARLY AND REPORT GIVEN TO VIRY, WHO IS ASSUMING CARE OF PT.
--- NOTE | 2023-06-24 17:11 | NUR ---
Assumed care @1615hrs. report at bedside. PT A&OX4 IN BED SITTNG HEAD ELEVATED ON 4LNC SITTING @45DEGREE POX @97 W/ PULSE 99 R/R A FLUTTER PER TELE. EDUCATION ON AIRWAY CLEARANCE AND INCENTIVESPIROMETER USE ON BEDSIDE TABLE. PROVIDER NOTIFIED CBG 176 NEW ORDER ORDER AC/HS W SMALL SLIDING SCALE.
[2023-06-24 20:21] VITALS: BP 131/109
[2023-06-24 20:22] VITALS: BP 147/98
[2023-06-25 04:18] VITALS: BP 154/109
[2023-06-25 05:08] LABS: Bun/Creatinine Ratio 44.1 (12.0-20.0); Calcium, Blood 9.3 mg/dL (8.5-10.1); Creatinine, Blood 1.88 mg/dL (0.60-1.20); Potassium, Blood 4.6 mmol/L (3.5-5.5)
--- NOTE | 2023-06-25 05:46 | NUR ---
SHIFT SUMMARY PATIENT A/Ox4, PLEASANT AND COOPERATIVE. DENIES PAIN NOR DISCOMFORT. C/O INTERMITTANT NON-PRODUCTIVE COUGH, RECEIVED PRN COUGH SYRUP, TOLERATED WELL. ASLEEP THROUGHOUT MOST OF SHIFT, COMPLIANT WITH BiPAP. NO ACUTE CHANGES NOTED OVERNIGHT. BED LOW, CALL LIGHT WITHIN REACH.
[2023-06-25 07:38] VITALS: BP 149/87
[2023-06-25 14:38] VITALS: BP 132/97
--- NOTE | 2023-06-25 16:48 | NUR ---
DAYSHIFT SUMMARY Patient alert & oriented x4. No acute changes to patient status, sats stable on 2lpm O2. IV solu-medrol and IV ABX administred this shift. Blood sugars continue to run high, medium SSI administred. Vital signs stable. Will continue plan of care.
[2023-06-25 19:56] VITALS: BP 150/101
[2023-06-26 03:12] VITALS: BP 151/110
--- NOTE | 2023-06-26 05:12 | NUR ---
SHIFT SUMMARY ALERT AND ORIENTED. PATIENT DENIES PAIN AND NAUSEA. SHORT OF BREATH WITH ACTIVITY. COUGH SYRUP GIVEN X1. LUNGS DIM AND WHEEZES NOTED. 2L/NC WHEN AWAKE AND 4L BLEED IN ON CPAP WHILE SLEEPING TO MAINTAIN OXYGEN SATURATION ABOVE 92%. UP STAND PIVOT TO BSC. PLEASANT AND COOPERATIVE WITH CARE.
[2023-06-26 05:24] LABS: Bun/Creatinine Ratio 48.7 (12.0-20.0); Calcium, Blood 9.2 mg/dL (8.5-10.1); Creatinine, Blood 1.97 mg/dL (0.60-1.20); Potassium, Blood 4.5 mmol/L (3.5-5.5)
[2023-06-26 07:35] VITALS: BP 148/94
--- NOTE | 2023-06-26 09:00 | NUR ---
pt laying in bed a/ox4, pleasant and cooperative with care, follows commands well, denies pain at this time, lungs have exp wheezing t/o, dim in bases, resp even and unlaobred, no cough noted, hrirr, tele i place running afib per monitor, see strip, trace edema notedt to b/l le, ppp+1, cap refill <3sec, vs stable, afebrile, iv site to lfa is clear and patent, s.l., btx4, abd round soft nontender, voids without diff, skin c/w/d, maew, ivana, call light in reach.
[2023-06-26 18:22] LABS: Adenovirus Not Detected (NOT DETECT); Bordetella pertussis Not Detected (NOT DETECT); Chlamydophila pneumoniae Not Detected (NOT DETECT); Coronavirus 229E Not Detected (NOT DETECT); Coronavirus HKU1 Not Detected (NOT DETECT); Coronavirus NL63 Not Detected (NOT DETECT); Coronavirus OC43 Not Detected (NOT DETECT); Human Metapneumovirus Not Detected (NOT DETECT); Human Rhinovirus/Enterovirus Not Detected (NOT DETECT); Influenza A/2009-H1 Not Detected (NOT DETECT); Influenza A/H1 Not Detected (NOT DETECT); Influenza A/H3 Not Detected (NOT DETECT); Influenza B Not Detected (NOT DETECT); Mycoplasma pneumoniae Not Detected (NOT DETECT); Parainfluenza Virus 1 Not Detected (NOT DETECT); Parainfluenza Virus 2 Not Detected (NOT DETECT); Parainfluenza Virus 3 Not Detected (NOT DETECT); Parainfluenza Virus 4 Not Detected (NOT DETECT); Respiratory Syncytial Virus Not Detected (NOT DETECT); SARS-Cov-2 (COVID-19), BioFire Not Detected (NOT DETECT)
--- NOTE | 2023-06-26 19:28 | NUR ---
pt had pretty good day, did cough up some blood this afternoon, family in to visit, no further changes this shift. call light in reach.
--- NOTE | 2023-06-26 19:28 | NUR ---
RECEIVED REPORT FROM LEE RN. PT SITTING UP IN BED WATCHING TV. CALL LT IN REACH.
[2023-06-26 19:50] VITALS: BP 147/84
--- NOTE | 2023-06-26 20:44 | NUR ---
CBG 203.
--- NOTE | 2023-06-26 21:40 | NUR ---
ASSISTED PT WITH BIPAP. NO OTHER NEEDS. CALL LT IN REACH.
--- NOTE | 2023-06-26 23:55 | NUR ---
SCHEDULED MED GIVEN TO PT. GAVE PT HIS URINAL. STATES HE DOES NOT NEED ANYTHING ELSE AT THIS TIME. BIPAP IN PLACE. CALL LT IN REACH.
--- NOTE | 2023-06-27 01:56 | NUR ---
PT RESTING. BIPAP IN PLACE WITH 4L BLEED IN, O2 SATS 94%, HR 79. WILL MONITOR. CALL LT IN REACH.
--- NOTE | 2023-06-27 03:33 | NUR ---
PT RESTING QUIETLY. BIPAP IN PLACE. 96% O2 SATS. CALL LT IN REACH.
[2023-06-27 03:54] VITALS: BP 166/106
--- NOTE | 2023-06-27 04:10 | NUR ---
SHIFT SUMMARY: A/O X 4. PLEASANT AND COOPERATIVE WITH CARE. USES CALL LT APPROPRIATELY. NOTED SOB DURING CONVERSATION. CURRENTLY ON 2L VIA NC DURING DAY AND BIPAP AT NIGHT WITH 4L BLEED IN. 02 SATS MID NINETIES. COARSE, WHEEZY LUNG SOUNDS T/O. PT REPORTS STILL VERY SOB. CONTINUE TO PROVIDE IV STEROIDS, AND BREATHING TREATMENTS PER DR'S ORDERS. CBG 203. PT RECEIVED 10 UNITS OF LANTUS. USES URINAL AT BEDSIDE INDEPENDENTLY. NO ACUTE CHANGES. WILL CONTINUE TO PROVIDE CARE UNTIL SHIFT REPORT TO ONCOMING NURSE. CALL LT IN REACH.
--- NOTE | 2023-06-27 05:00 | NUR ---
PT RESTING. BIPAP IN PLACE. CALL LT IN REACH.
[2023-06-27 05:36] LABS: Bun/Creatinine Ratio 57.5 (12.0-20.0); Calcium, Blood 8.9 mg/dL (8.5-10.1); Creatinine, Blood 1.79 mg/dL (0.60-1.20); Potassium, Blood 4.2 mmol/L (3.5-5.5)
--- NOTE | 2023-06-27 05:45 | NUR ---
PT STATES NO COUGH DURING THE NIGHT, KEPT HIS MASK ON ALL NIGHT. DENIED NEEDING ANYTHING FOR COUGH.
[2023-06-27 07:33] VITALS: BP 160/96
[2023-06-27 14:58] VITALS: BP 141/91
--- NOTE | 2023-06-27 18:32 | NUR ---
SHIFT SUMMARY: NO ACUTE EVENTS. NO EVENTS ON TELEMETRY, A FLUTTER IN THE 90'S. LUNGS SOUND TIGHT WITH EXP WHEEZES THROUGHOUT. ON O2 @ 2 L/MIN NC DURING THE DAY, INCREASES TO 4 L/MIN BLEED IN WITH CPAP, BOTH OF WHICH HE STATES ARE HIS BASELINE. CHEST CT COMPLETED. DENIED PAIN. GETTING UP TO BSC WITH ONE PERSON ASSIST.
[2023-06-27 20:56] VITALS: BP 146/102
--- NOTE | 2023-06-28 04:35 | NUR ---
SHIFT SUMMARY 72 YR M ADMITTED ON 06/23/23 FOR COPD EXACERBATION. FULL CODE. NO ACUTE CHANGES THIS SHIFT. PT WORE HIS CPAP FOR MOST OF THIS SHIFT AND HIS O2 SATS HAVE REMAINED WNL. HE IS VERY PLEASANT AND COOPERATIVE W/ CARE. HE INDEPENDANTLY USES A URINAL IN BED. NO CALLS FROM SUPERVISOR HAIRSPRING FABRICATION THIS SHIFT.
[2023-06-28 04:55] VITALS: BP 151/112
[2023-06-28 07:16] VITALS: BP 151/109
[2023-06-28 15:42] VITALS: BP 151/95
--- NOTE | 2023-06-28 18:05 | NUR ---
SHIFT SUMMARY: NO ACUTE EVENTS. NO EVENTS ON TELEMETRY, AFIB 90-100'S. LUNG SOUNDS TIGHT WITH EXP WHEEZES THROUGHOUT. ON O2 @ 2 L/MIN DURING THE DAY, SATS 92-95%. HYPERTENSIVE 150'S/90-100'S, POSSIBLY D/T BREATHING TREATMENTS. USING URINAL INDEPENDENTLY. GOOS APPETITE, IN GOOD SPIRITS.
[2023-06-28 19:23] VITALS: BP 138/103
[2023-06-29 01:55] VITALS: BP 169/101
--- NOTE | 2023-06-29 04:21 | NUR ---
SHIFT SUMMARY 72 YR M ADMITTED ON 06/23/23 FOR COPD EXACERBATION. FULL CODE. NO ACUTE CHANGES THIS SHIFT. HE IS A&O X 4, PLEASANT, AND COOPERATIVE WITH CARE. O2 BY NC DURING THE DAY AND CPAP AT NIGHT. NO C/O PAIN OR DISCOMFORT THIS SHIFT.
[2023-06-29 05:26] LABS: Hematocrit 37.6 % (37.0-53.0); Hemoglobin 12.5 g/dL (13.5-17.5); Mean Corpuscular HGB 31.9 pg (26.0-34.0); Mean Corpuscular HGB Conc 33.2 g/dL (31.5-36.5); Mean Corpuscular Volume 96 fL (80-100); Mean Platelet Volume 11.5 fL (9.1-12.4); NRBC ABSOLUTE 0.03 K/mm3 (0.00-0.02); NRBC Auto 0.2 /100 WBC (0.0-0.2); Platelet Count 270 K/mm3 (150-400); RDW Coefficient Variation 14.2 % (11.7-14.2); RDW Standard Deviation 49.2 fL (35.1-46.3); Red Blood Cell Count 3.92 M/mm3 (4.30-5.90); White Blood Cell Count 16.23 K/mm3 (4.00-11.30)
[2023-06-29 05:46] LABS: Bun/Creatinine Ratio 59.5 (12.0-20.0); Creatinine, Blood 1.73 mg/dL (0.60-1.20); Potassium, Blood 4.2 mmol/L (3.5-5.5)
[2023-06-29 07:21] VITALS: BP 165/110
[2023-06-29 09:41] VITALS: BP 90/54
[2023-06-29 15:01] VITALS: BP 152/80
--- NOTE | 2023-06-29 17:22 | NUR ---
PT IS A/OX4, PLEASANT AND COOPERATIVE. TH PT IS UP WITH ASSIST TO THE CHAIR AND TO THE BSC. THE PT IS ON 2L/MIN O2 VIA NC SAT'S > 92%. THE PT DENIED ANY PAIN AT THIS TIME. PT WAS MEDICATED FOR COUGH X1 TODAY. THE PT HAS RECIEVED BREATHING TX'S SCHEDULED. WAS AT THE BEDSIDE TODAY. CALL LIGHT IN REACH. WILL CONTINUE TO MONITOR AND ASSESS FOR CHANGES
[2023-06-29 19:40] VITALS: BP 128/75
[2023-06-30 01:06] VITALS: BP 146/117
[2023-06-30 02:52] VITALS: BP 157/109
--- NOTE | 2023-06-30 05:50 | NUR ---
SHIFT SUMMARY PT MEDICATED FOR COUGH EARLY IN THE SHIFT. NO FURTHER NEED SINCE. CPAP IN PLACE MOST THE SHIFT WITH A 4L BLEED. THIS IS THE PATINET'S BASELINE. NO OTHER ACUTE CHANGES IN ASSESSMENT AT THIS TIME. VS REVIEWED. PT DENIES OTHER NEEDS AT THIS TIME.
[2023-06-30 08:13] VITALS: BP 134/80
--- NOTE | 2023-06-30 14:36 | NUR ---
SHIFT SUMMARY PT AWAKE DURING SHIFT REPORT, SITTING UP IN BED WITH CPAP ON. PT REMOVING CPAP BEFORE BREAKFAST. PER REPORT, PT IMPROVING AND NOW AT BASELINE O2. LUNGS T/O DIM WITH SCATTERED EXP WHEEZES. PT'S IN TO VISIT THIS AM. PT CONTINUES TO DENY NEEDS MOST OF THE DAY. DID REQUEST TESSALON FOR COUGH X1 THIS AM. DR HAGAN IN TO SEE PT AND DISCUSS PLAN OF CARE. NEW ORDERS PLACED. MEDICATIONS ADJUSTED. USING URINAL IN BED. CALLS APPROP. FOR NEEDS. REPORTS USING ORAL DIABETIC MEDS ONLY AT HOME; NO INSULIN. CALL LT IN REACH.
[2023-06-30 14:47] VITALS: BP 107/59
[2023-06-30 20:00] VITALS: BP 121/72
[2023-07-01 02:35] VITALS: BP 148/106
--- NOTE | 2023-07-01 04:45 | NUR ---
REPORT RECEIVED VERIFIED PT HAPPY AND POSITIVE LAYING QUIETLY IN BED NC AT 2L. PT IS O2 DEPENDANT AT HOMEAND USES 2LNC. SO FAR UNEVENTFUL NIGHT PT SLEEPING COMFORTABLY.
[2023-07-01 07:50] VITALS: BP 151/98
[2023-07-01] MEDS ORDERED: GUAI600T33 PO (12:50)
[2023-07-01] MEDS ORDERED: Prinivil10 MG PO (12:51)
[2023-07-01] MEDS ORDERED: DULERA 200 MCG-13 GM INH (12:52)
[2023-07-01] MEDS ORDERED: PRED20 PO (12:54)
[2023-07-01] MEDS ORDERED: FAMO20 PO (12:56)
--- NOTE | 2023-07-01 14:30 | NUR ---
SHIFT SUMMARY PT AWAKE DURING SHIFT REPORT, SITTING UP IN BED, WATCHING TV. PLEASANT AND CO-OP. PT CONTINUES TO IMPROVE. NO ACUTE CHANGES THRU OUT THE NIGHT OR AGAIN TODAY. MEDS ADJUSTED AND DECREASED NEEDED YESTERDAY AND TODAY. LUNGS T/O DIM WITH SCATTERED EXP WHEEZES. PT HAS REMAINED AT BASELINE O2 NEEDS PAST COUPLE OF DAYS. ABLE TO WORK WITH PT/OT AGAIN TODAY. UP TO BSC AND THEN BATHRM FOR BM'S. USING URINAL AT BS TO VOID NEEDED. DR HAGAN IN TO SEE PT AND DISCUSS PLAN OF CARE. D/C ORDERS LATER PLACED. PT'S NOTIFIED BY SUPERVISOR PROP MAKING OF D/C ORDERS. D/C INSTRUCTIONS REVIEWED WITH PT. [facility] REQUEST. MEDICATIONS REVIEWED WITH PT; VERBALIZED UNDERSTANDING. PT ABLE TO DRESS HIMSELF WITH SOME ASSIST FROM SADDLE MAKER. PT SITTING UP IN CHAIR AT BS WAITING FOR TO GET OFF WORK. CALL LT IN REACH.
== END 2023-07-01 14:50 | disposition home or self-care (01) | DRG 189 ==
LOC: ER 20:46 → MEDS 20:47 → EDBEDREQ 23:23 → MEDS 23:53 → ENPENDDIS 07-01 11:28 → MEDS 07-01 14:50
PROVIDERS: Emergency Medicine; Internal Medicine; Student in an Organized Health Care Education/Training Program; ADMIT Internal Medicine
PROC: 5A09457 Assistance with Respiratory Ventilation, 24-96 Consecutive Hours, Continuous Positive Airway Pressure (ICD-10-PCS; principal; 2023-06-23)
DX: J96.21 Acute and chronic respiratory failure with hypoxia (principal); I50.32 Chronic diastolic (congestive) heart failure; I13.0 Hypertensive heart and chronic kidney disease with heart failure and stage 1 through stage 4 chronic kidney disease, or unspecified chronic kidney disease; J44.1 Chronic obstructive pulmonary disease with (acute) exacerbation; I48.20 Chronic atrial fibrillation, unspecified; E87.3 Alkalosis; J96.22 Acute and chronic respiratory failure with hypercapnia; N18.30 Chronic kidney disease, stage 3 unspecified; G47.33 Obstructive sleep apnea (adult) (pediatric); F43.10 Post-traumatic stress disorder, unspecified; E03.9 Hypothyroidism, unspecified; K21.9 Gastro-esophageal reflux disease without esophagitis; E66.9 Obesity, unspecified; R54 Age-related physical debility; Z20.822 Contact with and (suspected) exposure to COVID-19; R73.9 Hyperglycemia, unspecified; T38.0X5A Adverse effect of glucocorticoids and synthetic analogues, initial encounter; Z79.899 Other long term (current) drug therapy; Z79.01 Long term (current) use of anticoagulants; Z79.52 Long term (current) use of systemic steroids; Z79.890 Hormone replacement therapy; Z90.49 Acquired absence of other specified parts of digestive tract; Z98.890 Other specified postprocedural states; Z87.891 Personal history of nicotine dependence; Z68.36 Body mass index [BMI] 36.0-36.9, adult
CPT/HCPCS: 0202U; 0241U; 36415; 71045; 71250; 80048; 80053; 80069; 82803; 82947; 83036; 83735; 83880; 84145; 84484; 85025; 85027; 87070; 87205; 93005; 93010; 94640; 94644; 94645; 94660; 94664; 94762; 96374; 96375; 96376; 97116; 97162; 97530; 99285-25; A9270; G0378; J0456; J0696; J1815; J1940; J2930; J3420; J7030; J7050; J7512

== ENCOUNTER 2023-07-29 08:50 | Emergency (ER) | payer OTHER ==
[~2023-07-29] VITALS: Ht 167.6 cm; Wt 115.7 kg
[~2023-07-29 08:50] MED LIST changes: +DULERA 200 MCG-13 GM INH; +FAMO20 PO; +GUAI600T33 PO; +PRED20 PO; +Prinivil10 MG PO
[2023-07-29 09:31] LABS: BASOPHILS ABSOLUTE AUTO 0.02 K/mm3 (0.00-0.23); BASOPHILS PERCENT AUTO 0 % (0-2); EOSINOPHILS PERCENT AUTO 2 % (0-6); Hematocrit 33.4 % (37.0-53.0); Hemoglobin 10.6 g/dL (13.5-17.5); IMMATURE GRAN ABSOLUTE AUTO 0.23 K/mm3 (0.00-0.10); IMMATURE GRAN PERCENT AUTO 3 % (0-1); LYMPHOCYTES ABSOLUTE AUTO 1.72 K/mm3 (0.84-5.20); LYMPHOCYTES PERCENT AUTO 26 % (21-46); MONOCYTES ABSOLUTE AUTO 1.07 K/mm3 (0.16-1.47); MONOCYTES PERCENT AUTO 16 % (4-13); Mean Corpuscular HGB 31.7 pg (26.0-34.0); Mean Corpuscular HGB Conc 31.7 g/dL (31.5-36.5); Mean Corpuscular Volume 100 fL (80-100); Mean Platelet Volume 9.9 fL (9.1-12.4); NEUTROPHILS ABSOLUTE AUTO 3.58 K/mm3 (1.96-9.15); NEUTROPHILS PERCENT AUTO 53 % (41-73); Platelet Count 269 K/mm3 (150-400); RDW Coefficient Variation 14.5 % (11.7-14.2); RDW Standard Deviation 51.2 fL (35.1-46.3); Red Blood Cell Count 3.34 M/mm3 (4.30-5.90); White Blood Cell Count 6.72 K/mm3 (4.00-11.30)
[2023-07-29 09:52] LABS: Albumin, Blood 3.1 g/dL (3.4-5.0); Albumin/Globulin Ratio 0.9 (0.8-1.8); Bilirubin, Total 0.3 mg/dL (0.1-1.0); Bun/Creatinine Ratio 23.7 (12.0-20.0); Calcium, Blood 9.4 mg/dL (8.5-10.1); Creatinine, Blood 1.98 mg/dL (0.60-1.20); Globulin, Blood 3.3 g/dL (2.2-4.0); Potassium, Blood 4.4 mmol/L (3.5-5.5); Total Protein, Blood 6.4 g/dL (6.4-8.2)
[2023-07-29 10:41] LABS: Influenza A, PCR NEGATIVE (NEGATIVE); Influenza B, PCR NEGATIVE (NEGATIVE); Resp Syncytial Virus, PCR NEGATIVE (NEGATIVE); SARS-Cov-2 (COVID-19) PCR, MMC NEGATIVE (NEGATIVE)
[2023-07-29] MEDS ORDERED: Prednisone20 MG PO (10:58)
[2023-07-29] MEDS ORDERED: AZIT250 PO (10:58)
[2023-07-29 11:00] VITALS: BP 106/70
== END 2023-07-29 11:30 | disposition home or self-care (01) ==
LOC: ER 08:50
PROVIDERS: Emergency Medicine
DX: J18.9 Pneumonia, unspecified organism (principal); N28.9 Disorder of kidney and ureter, unspecified; Z20.822 Contact with and (suspected) exposure to COVID-19; Z87.891 Personal history of nicotine dependence; Z88.8 Allergy status to other drugs, medicaments and biological substances; Z79.01 Long term (current) use of anticoagulants; Z79.899 Other long term (current) drug therapy; Z79.51 Long term (current) use of inhaled steroids; E03.9 Hypothyroidism, unspecified; K21.9 Gastro-esophageal reflux disease without esophagitis; I48.91 Unspecified atrial fibrillation; J44.9 Chronic obstructive pulmonary disease, unspecified; I11.0 Hypertensive heart disease with heart failure; I50.9 Heart failure, unspecified
CPT/HCPCS: 0241U; 71045; 80053; 83880; 84484; 85025; 93005; 93010; 96374; 96375; 99285-25; J0696; J2930